=== PATIENT | female | born 1940 | race Two or more races ===

== ENCOUNTER 2016-08-04 16:30 | Inpatient (IN) | payer OTHER ==
[~2016-08-04] VITALS: Ht 152.4 cm; Wt 97.0 kg
[~2016-08-04 16:30] MED LIST: ALBUD HHN; ALD25 PO; ALDACTONE25 MG PO; APAP/HYDROCODON1 T13 PO; APR10 PO; ASPI-COR81 M3 PO; ASPIR 8181 MG PO; BENC TOP; CARVEDILOL25 M1 PO; CLINDAMYCIN HC300 MG PO; COLACE100 MG PO; CORE25 PO; FUROSEMIDE20 MG; FUROSEMIDE20 MG PO; FUROSEMIDE40 MG PO; GLIPIZIDE5 MG PO; GLU5 PO; HYD50 TOP; HYDRALAZINE HCL25 MG PO; HYDRALAZINE HYD10 M1 PO; I20 PO; IMDUR30 MG PO; L40 PO; LAC PO; LANTUS SOLOS100 U/M1 SQ; LASIX20 MG PO; LASIX40 MG PO; LEVAQUIN750 MG PO; LEVOFLOXACIN750 M1 PO; LIPI20 PO; LIPITOR40 MG PO; MAG PO; MEDDP PO; NEU300 PO; NORCO1 TA2 PO; NOVI; OMEPRAZOLE DR20 M1 PO; PRAVACHOL20 MG PO; PULMICORT0.5 MG/2 M IH; TRAMADOL HCL50 MG PO; TYLENOL EXTRA500 M2 PO
[2016-08-04 18:30] LABS: BASOPHIL % 0.9 % (0-2); RED CELL DISTRIBUTION WIDTH 13.7 % (11.5-14.5)
[2016-08-04 18:37] LABS: CALCIUM 8.7 mg/dL (8.5-10.1); CARBON DIOXIDE 30.2 mmol/L (21-32); CHLORIDE SERUM 103 mmol/L (98-107); CREATININE SERUM 1.7 mg/dL (0.6-1.0); GLUCOSE SERUM 179 mg/dL (74-106); POTASSIUM SERUM 3.4 mmol/L (3.5-5.1); SODIUM SERUM 141 mmol/L (136-145)
[2016-08-04 18:42] LABS: ALKALINE PHOSPHATASE 150 U/L (46-116); ALT/SGPT 30 U/L (14-59); AST/SGOT 23 U/L (15-37); BILIRUBIN TOTAL 0.4 mg/dL (0.20-1.00); MAGNESIUM 1.7 mg/dL (1.8-2.4)
[2016-08-04 18:44] LABS: ALBUMIN 3.1 g/dL (3.4-5.0)
[2016-08-04 19:34] LABS: BASOPHIL % 0.6 % (0-2); PLATELET COUNT 346 x10^3mcL (130-400); RED CELL DISTRIBUTION WIDTH 14.2 % (11.5-14.5)
[2016-08-04 20:35] LABS: CHOLESTEROL/HDL RATIO 3.9
[2016-08-04 20:40] LABS: rbc morphology (normal/abnorm) NORMAL (NORMAL)
[2016-08-04 20:45] LABS: T3 TOTAL 0.89 ng/mL
[2016-08-04 20:48] LABS: FREE T4 1.14 ng/dL (0.76-1.46); FREE THYROXINE INDEX 3.6 ug/dL (1.4-4.5); T4(THYROXINE) 9.6 ug/dL (4.7-13.3)
[2016-08-04 21:17] LABS: PLATELET COUNT 573 x10^3mcL (130-400)
[2016-08-04 21:41] VITALS: BP 140/67
[2016-08-05] VITALS (8 sets, daily range): BP systolic 113–174; BP diastolic 47–72
[2016-08-05 07:41] LABS: BASOPHIL % 0.5 % (0-2); PLATELET COUNT 344 x10^3mcL (130-400); RED CELL DISTRIBUTION WIDTH 14.2 % (11.5-14.5)
[2016-08-05 07:53] LABS: CALCIUM 8.6 mg/dL (8.5-10.1); CARBON DIOXIDE 29.7 mmol/L (21-32); CHLORIDE SERUM 102 mmol/L (98-107); CREATININE SERUM 1.7 mg/dL (0.6-1.0); GLUCOSE SERUM 178 mg/dL (74-106); PHOSPHOROUS 4.8 mg/dL (2.5-4.9); POTASSIUM SERUM 3.8 mmol/L (3.5-5.1); SODIUM SERUM 140 mmol/L (136-145)
[2016-08-05 18:45] LABS: microscopic required? NO
[2016-08-05 19:06] LABS: UA SPECIFIC GRAVITY 1.015 (1.005-1.035); urine erythrocyte NEGATIVE (NEGATIVE)
[2016-08-06] VITALS: Ht 152.4 cm; Wt 97.0 kg
[2016-08-06 06:13] VITALS: BP 135/61
[2016-08-06 09:52] LABS: BASOPHIL % 0.4 % (0-2); PLATELET COUNT 144 x10^3mcL (130-400)
[2016-08-06 10:02] LABS: ALBUMIN 2.5 g/dL (3.4-5.0); CALCIUM 8.5 mg/dL (8.5-10.1); CARBON DIOXIDE 28.3 mmol/L (21-32); CHLORIDE SERUM 100 mmol/L (98-107); CREATININE SERUM 1.8 mg/dL (0.6-1.0); GLUCOSE SERUM 309 mg/dL (74-106); POTASSIUM SERUM 3.8 mmol/L (3.5-5.1); SODIUM SERUM 136 mmol/L (136-145)
[2016-08-06 10:33] VITALS: BP 133/81
[2016-08-06 16:59] VITALS: BP 138/64
[2016-08-06 22:00] VITALS: BP 110/52
[2016-08-07 01:46] VITALS: BP 125/68
[2016-08-07 05:57] VITALS: BP 148/62
[2016-08-07 10:09] VITALS: BP 133/59
[2016-08-07 13:44] VITALS: BP 158/65
[2016-08-07] MEDS ORDERED: LOP600 PO (13:56)
[2016-08-07 15:06] VITALS: BP 158/65
[2016-08-07] MEDS ORDERED: ISOSORBIDE MONO10 MG PO (15:09)
[2016-08-07 18:10] VITALS: BP 141/47
== END 2016-08-07 19:55 | disposition home or self-care (01) | DRG 177 ==
LOC: ED 16:30 → DU 19:50 → MU 19:50 → DU 20:15 → MU 08-06 11:27
PROVIDERS: Emergency Medicine; ADMIT Family Medicine
DX: J69.0 Pneumonitis due to inhalation of food and vomit (principal); N17.0 Acute kidney failure with tubular necrosis; E43 Unspecified severe protein-calorie malnutrition; I50.43 Acute on chronic combined systolic (congestive) and diastolic (congestive) heart failure; J44.1 Chronic obstructive pulmonary disease with (acute) exacerbation; D68.69 Other thrombophilia; Z68.41 Body mass index [BMI] 40.0-44.9, adult; E86.0 Dehydration; E87.6 Hypokalemia; I11.0 Hypertensive heart disease with heart failure; E78.5 Hyperlipidemia, unspecified; E83.42 Hypomagnesemia; E11.65 Type 2 diabetes mellitus with hyperglycemia; E11.51 Type 2 diabetes mellitus with diabetic peripheral angiopathy without gangrene; E11.59 Type 2 diabetes mellitus with other circulatory complications; D64.9 Anemia, unspecified; I25.10 Atherosclerotic heart disease of native coronary artery without angina pectoris; I25.2 Old myocardial infarction; Z95.1 Presence of aortocoronary bypass graft; M19.90 Unspecified osteoarthritis, unspecified site; M25.78 Osteophyte, vertebrae; E66.01 Morbid (severe) obesity due to excess calories
CPT/HCPCS: 83880; 84439; 97110-GP; 97530-GP; J1815; J1940; J1956; J2270; J2405; J2543; J3490; J7030; J7620; Q0092

== ENCOUNTER 2016-10-01 17:41 | Inpatient (IN) | payer OTHER ==
[~2016-10-01] VITALS: Ht 152.4 cm; Wt 92.0 kg
[~2016-10-01 17:41] MED LIST changes: +ISOSORBIDE MONO10 MG PO; +LOP600 PO
[2016-10-01 18:37] LABS: BASOPHIL % 0.6 % (0-2); PLATELET COUNT 341 x10^3mcL (130-400); RED CELL DISTRIBUTION WIDTH 14.3 % (11.5-14.5)
[2016-10-01 18:47] LABS: CARBON DIOXIDE 22.6 mmol/L (21-32); CHLORIDE SERUM 99 mmol/L (98-107); CREATININE SERUM 2.2 mg/dL (0.6-1.0); GLUCOSE SERUM 310 mg/dL (74-106); POTASSIUM SERUM 4.7 mmol/L (3.5-5.1); SODIUM SERUM 134 mmol/L (136-145)
[2016-10-01 18:52] LABS: ALBUMIN 3.3 g/dL (3.4-5.0); ALKALINE PHOSPHATASE 150 U/L (46-116); ALT/SGPT 32 U/L (14-59); AST/SGOT 28 U/L (15-37); BILIRUBIN TOTAL 0.41 mg/dL (0.20-1.00); LIPASE 896 IU/L (73-393); TOTAL PROTEIN, SERUM 7.3 g/dL (6.4-8.2)
[2016-10-01] MEDS ORDERED: LASIX40 MG PO (19:52)
[2016-10-01] MEDS ORDERED: ISOSORBIDE DINI10 MG PO (19:52)
[2016-10-01] MEDS ORDERED: SPIRONOLACTONE25 MG PO (19:52)
[2016-10-01] MEDS ORDERED: LANTUS SOLOS100 U/M1 SC (19:53)
[2016-10-01] MEDS ORDERED: LIPITOR40 MG PO (19:53)
[2016-10-01] MEDS ORDERED: CORE25 PO (19:53)
[2016-10-01] MEDS ORDERED: NOVI (19:53)
[2016-10-01 20:24] LABS: MAGNESIUM 1.8 mg/dL (1.8-2.4); PHOSPHOROUS 3.6 mg/dL (2.5-4.9)
[2016-10-01 20:29] LABS: T3 TOTAL 0.78 ng/mL
[2016-10-01 20:31] LABS: FREE T4 1.16 ng/dL (0.76-1.46); FREE THYROXINE INDEX 2.6 ug/dL (1.4-4.5); T4(THYROXINE) 7.3 ug/dL (4.7-13.3)
[2016-10-01 20:41] VITALS: BP 164/75
[2016-10-01 21:59] VITALS: BP 164/75
[2016-10-01 23:55] VITALS: BP 152/38
[2016-10-02] VITALS (7 sets, daily range): BP systolic 108–180; BP diastolic 58–83
[2016-10-02 06:20] LABS: CALCIUM 8.9 mg/dL (8.5-10.1); CARBON DIOXIDE 21.4 mmol/L (21-32); CHLORIDE SERUM 102 mmol/L (98-107); CREATININE SERUM 2.2 mg/dL (0.6-1.0); GLUCOSE SERUM 182 mg/dL (74-106); MAGNESIUM 1.8 mg/dL (1.8-2.4); PHOSPHOROUS 4.1 mg/dL (2.5-4.9); POTASSIUM SERUM 4.1 mmol/L (3.5-5.1); SODIUM SERUM 137 mmol/L (136-145)
[2016-10-02 07:05] LABS: BASOPHIL % 0.6 % (0-2); PLATELET COUNT 299 x10^3mcL (130-400); RED CELL DISTRIBUTION WIDTH 14.5 % (11.5-14.5)
[2016-10-02 13:29] LABS: microscopic required? NO
[2016-10-02 13:54] LABS: urine erythrocyte NEGATIVE (NEGATIVE)
[2016-10-03 05:55] VITALS: BP 135/66
[2016-10-03 06:17] LABS: BASOPHIL % 0.5 % (0-2); PLATELET COUNT 295 x10^3mcL (130-400)
[2016-10-03 06:32] LABS: CALCIUM 8.8 mg/dL (8.5-10.1); CARBON DIOXIDE 24.7 mmol/L (21-32); CHLORIDE SERUM 101 mmol/L (98-107); CREATININE SERUM 2.2 mg/dL (0.6-1.0); GLUCOSE SERUM 128 mg/dL (74-106); MAGNESIUM 1.7 mg/dL (1.8-2.4); PHOSPHOROUS 4.2 mg/dL (2.5-4.9); POTASSIUM SERUM 4.7 mmol/L (3.5-5.1); SODIUM SERUM 138 mmol/L (136-145)
[2016-10-03 07:22] LABS: RED CELL DISTRIBUTION WIDTH 14.7 % (11.5-14.5)
[2016-10-03 10:00] VITALS: BP 111/54
[2016-10-03 14:41] VITALS: BP 121/63
[2016-10-03 18:11] VITALS: BP 139/63
[2016-10-03 22:43] VITALS: BP 144/56
[2016-10-04 06:10] VITALS: BP 139/64
[2016-10-04 08:11] LABS: BASOPHIL % 0.4 % (0-2); PLATELET COUNT 324 x10^3mcL (130-400)
[2016-10-04 08:13] LABS: RED CELL DISTRIBUTION WIDTH 14.9 % (11.5-14.5)
[2016-10-04 08:16] LABS: CALCIUM 9.3 mg/dL (8.5-10.1); CARBON DIOXIDE 27.2 mmol/L (21-32); CHLORIDE SERUM 99 mmol/L (98-107); CREATININE SERUM 2.6 mg/dL (0.6-1.0); GLUCOSE SERUM 260 mg/dL (74-106); MAGNESIUM 1.8 mg/dL (1.8-2.4); PHOSPHOROUS 4.5 mg/dL (2.5-4.9); POTASSIUM SERUM 4.4 mmol/L (3.5-5.1); SODIUM SERUM 136 mmol/L (136-145)
[2016-10-04 09:56] VITALS: BP 106/57
[2016-10-04 17:51] VITALS: BP 148/76
[2016-10-04 21:58] VITALS: BP 145/68
[2016-10-05 06:01] VITALS: BP 122/53; BP 140/50
[2016-10-05 14:00] VITALS: BP 143/68
[2016-10-05 15:16] VITALS: BP 143/68
[2016-10-05] MEDS ORDERED: THERA TABS1 TAB PO (16:06)
[2016-10-05] MEDS ORDERED: GLU10 PO (16:06)
[2016-10-05] MEDS ORDERED: LEVAQUIN750 MG PO (16:12)
[2016-10-05] MEDS ORDERED: CLINDAMYCIN HC300 MG PO (16:12)
[2016-10-05] MEDS ORDERED: LAC PO (16:13)
[2016-10-05] MEDS ORDERED: VENTOLIN H0.09 MG/A1 INH (16:14)
== END 2016-10-05 16:08 | disposition home or self-care (01) | DRG 177 ==
LOC: ED 17:41 → DU 19:38 → MU 10-04 09:44
PROVIDERS: Emergency Medicine; Family Medicine; ADMIT Family Medicine
DX: J69.0 Pneumonitis due to inhalation of food and vomit (principal); N17.0 Acute kidney failure with tubular necrosis; K85.90 Acute pancreatitis without necrosis or infection, unspecified; E44.1 Mild protein-calorie malnutrition; D68.69 Other thrombophilia; E87.1 Hypo-osmolality and hyponatremia; E83.42 Hypomagnesemia; E11.51 Type 2 diabetes mellitus with diabetic peripheral angiopathy without gangrene; I11.9 Hypertensive heart disease without heart failure; I25.10 Atherosclerotic heart disease of native coronary artery without angina pectoris; E78.1 Pure hyperglyceridemia; M19.90 Unspecified osteoarthritis, unspecified site; M62.50 Muscle wasting and atrophy, not elsewhere classified, unspecified site; E66.9 Obesity, unspecified; I25.2 Old myocardial infarction; Z79.4 Long term (current) use of insulin; Z79.82 Long term (current) use of aspirin; Z68.39 Body mass index [BMI] 39.0-39.9, adult; Z95.1 Presence of aortocoronary bypass graft; Z91.11 Patient's noncompliance with dietary regimen
CPT/HCPCS: 83880; 84439; J1200; J1815; J1940; J2060; J2270; J2543; J7030; J7613; J7620; J7644; Q0092